=== PATIENT | female | born 1940 | race Caucasian/White ===

== ENCOUNTER → 2017-12-14 | Outpatient (CLI) | payer MEDICARE, OTHER | LOC: MC.RAD 10:00 | DX: N60.81 Other benign mammary dysplasias of right breast (principal); N60.11 Diffuse cystic mastopathy of right breast ==

== ENCOUNTER → 2021-01-08 | Outpatient (CLI) | payer MEDICARE, OTHER ==
[2021-01-08 13:22] LABS: BASO % 0.5 % (0.0-2.0); EOS # 0.5 K/mm3 (0.0-0.7); EOS % 6.9 % (0-4.0); GRAN # 3.1 K/mm3 (1.4-6.5); HEMATOCRIT 37.9 % (37.0-47.0); HEMOGLOBIN 13.1 g/dl (12.5-16.0); LYMPH # 2.1 K/mm3 (1.2-3.4); LYMPH % 31.3 % (20.0-51.0); MEAN CELL VOLUME 90 fl (80.0-100.0); MEAN CORPUSCULAR HEMOGLOBIN 31 pg (27.0-31.0); MEAN CORPUSCULAR HGB CONC 35 g/dl (33.0-37.0); MEAN PLATELET VOLUME 9.6 fl (7.4-10.4); MONO # 0.9 K/mm3 (0.1-0.6); PLATELET COUNT 335 K/mm3 (130-400); RED BLOOD COUNT 4.22 M/mm3 (4.10-5.30); REDCELL DISTRIBUTION WIDTH-CV 12.7 % (11.5-14.5)
[2021-01-08 13:30] LABS: INR 1.1 (0.8-3.0); PROTHROMBIN TIME 12.1 SECONDS (9.7-12.8)
[2021-01-08 13:52] LABS: ALBUMIN 4.1 gm/dL (3.4-4.8); BILIRUBIN,TOTAL 0.4 mg/dL (0.2-1.2); CALCIUM 9.9 mg/dL (8.4-10.2); CREATININE, serum 0.87 mg/dL (0.57-1.11); POTASSIUM 3.9 mmol/L (3.5-4.5); TOTAL PROTEIN 7.8 gm/dL (6.2-8.1)
== END ==
LOC: COL.LAB 12:51
PROVIDERS: Orthopaedic Surgery
DX: Z01.812 Encounter for preprocedural laboratory examination (principal)

== ENCOUNTER → 2021-06-03 | Outpatient (CLI) | payer MEDICARE | LOC: COL.RAD 08:31 | DX: M48.44XA Fatigue fracture of vertebra, thoracic region, initial encounter for fracture (principal); M48.061 Spinal stenosis, lumbar region without neurogenic claudication; M89.9 Disorder of bone, unspecified | CPT/HCPCS: A9503 ==

== ENCOUNTER 2023-08-29 08:24 | Day surgery (SDC) | payer MEDICARE ==
[2023-08-29] VITALS (14 sets, daily range): BP systolic 121–168; BP diastolic 46–103; PULSE 65–79; TEMP 97.5–97.9
[~2023-08-29] VITALS: Ht 165.1 cm; Wt 78.4 kg
[~2023-08-29 08:24] MED LIST: Celecoxib 200 MG CAP PO SCH; HYDROmorphone 1 MG/1 ML SYRINGE [PACU/SDC ONLY] IV PRN; LR 1,000 ML IV SCH; Meperidine 50 MG/ML 1 ML VIAL IV PRN; Ondansetron 4 MG/2 ML VIAL IV PRN; Pregabalin 150 MG CAP PO SCH; droPERidol 2.5 MG/ML 2 ML VIAL IV PRN; fentaNYL 50 MCG/ML 1 ML SYRINGE/VIAL [PACU/SDC ONLY] IV PRN; hydrALAZINE 20 MG/ML 1 ML VIAL IV PRN; oxyCODONE ER (12-HR) 20 MG TAB PO SCH
[2023-08-29] MEDS ORDERED: fentaNYL 50 MCG/ML 2 ML VIAL ONE (09:09)
[2023-08-29] MEDS ORDERED: dexAMETHasone 10 MG/ML VIAL ONE (09:11)
[2023-08-29] MEDS ORDERED: Ondansetron 4 MG/2 ML VIAL ONE (09:11)
[2023-08-29] MEDS ORDERED: NS 10 ML IV ONE (09:11)
[2023-08-29] MEDS ORDERED: ULTRAM 50MG TAB50 MG PO (10:17)
[2023-08-29] MEDS ORDERED: LIPITOR 10MG10 MG PO (10:19)
[2023-08-29] MEDS ORDERED: PROTONIX 40MG T40 MG PO (10:20)
[2023-08-29] MEDS ORDERED: PRINIVIL10 MG PO (10:21)
[2023-08-29] MEDS ORDERED: SYNTHROID0.05 MG/TA PO (10:21)
[2023-08-29] MEDS ORDERED: MOBIC15 MG PO (10:22)
[2023-08-29] MEDS ORDERED: CYMBALTA 30MG30 MG PO (10:23)
[2023-08-29] MEDS ORDERED: HYGROTON 2525 MG/TAB (10:25)
[2023-08-29] MEDS ORDERED: VITAMIN D362.5 MC1 PO (10:26)
[2023-08-29] MEDS ORDERED: B-12 500 MCG PO (10:26)
[2023-08-29] MEDS ORDERED: FERROUS SU325 MG/TAB PO (10:27)
[2023-08-29] MEDS ORDERED: FOLIC ACID 40400 MCG PO (10:27)
[2023-08-29] MEDS ORDERED: Tranexamic Acid 1,000 MG/10 ML VIAL ONE (10:47)
[2023-08-29] MEDS ORDERED: Topical Skin Adhesive 1 EACH (1 ML) TOP ONE (11:12)
[2023-08-29] MEDS ORDERED: Promethazine 25 MG TAB PO PRN (12:15)
[2023-08-29] MEDS ORDERED: Naloxone 0.4 MG/ML VIAL IV PRN (12:15)
[2023-08-29] MEDS ORDERED: oxyCODONE 5 MG TAB PO PRN (12:15)
[2023-08-29] MEDS ORDERED: Morphine 4 MG/ML VIAL IV PRN (12:15)
[2023-08-29] MEDS ORDERED: Promethazine 50 MG/ML 1 ML VIAL IM PRN (12:15)
[2023-08-29] MEDS ORDERED: Magnes Hydrox (MOM) 80 MG/ML 30 ML CUP PO PRN (12:15)
[2023-08-29] MEDS ORDERED: traMADol 50 MG TAB PO PRN (12:30)
[2023-08-29] MEDS ORDERED: Acetaminophen 500 MG TAB PO SCH (13:10)
--- NOTE | 2023-08-29 14:13 | NUR ---
pillar worker met with patient, and family members to discuss discharge planning. Patient lives in [place] with her , Marco Antonio, P# [phone]. PCP is Jorge Dinero, pharmacy is [facility]. No issues affording medications at this time. Insurance is Medicare A and B and [employer] Senior Supplemental. DPOA-HC is Marco Antonio. DME is cane, walker and walk in tub. Patient reports to normally be independent with ADLS and transportation to and from appointments. Patient reports she plans to return home at time of discharge with outpatient PT at [facility] starting on Tuesday. Discharge plan: Home with outpatient PT at [facility]
[2023-08-29] MEDS ORDERED: dexAMETHasone 10 MG/ML VIAL IV SCH (16:00)
--- NOTE | 2023-08-29 19:26 | NUR ---
report received from jorge clayton. pt sitting in recliner watching tv. pt denies pain. call light in reach. all needs met at this time.
[2023-08-29] MEDS ORDERED: Sennosides/Docusate 8.6-50 MG TAB PO SCH (21:00)
[2023-08-29] MEDS ORDERED: ceFAZolin 1 G in Water For Injection,Sterile 10 ML IV SCH (21:00)
--- NOTE | 2023-08-29 22:05 | NUR ---
shift assessment complete, see documentation. pt tolerated hs meds well. pt rating right knee pain 08/07. prn oxycodone administered per orders at 2159. crycocuff to right knee without issue. pt resting in bed watching tv. call light in reach. all needs met at this time.
--- NOTE | 2023-08-30 00:08 | NUR ---
pt c/o insomnia. 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 new order for 25mg PO Benadryl PRN HS for insomnia.
[2023-08-30] MEDS ORDERED: diphenhydrAMINE 25 MG CAP PO PRN (00:15)
[2023-08-30 01:12] VITALS: BP_SYST 168
[2023-08-30 04:00] VITALS: BP 134/79; PULSE 72; TEMP 97.8
[2023-08-30 04:28] VITALS: BP_SYST 134
--- NOTE | 2023-08-30 05:45 | NUR ---
pt ended up sleeping well. pt denies pain this morning. scheduled tylenol administered per orders. pt ambulated to bathroom and back to bed with SBA and steady gait. cryocuff placed to right knee. call light in reach. all needs met at this time.
[2023-08-30 06:46] LABS: HEMOGLOBIN 11.4 g/dl (12.5-16.0)
[2023-08-30 06:49] LABS: HEMATOCRIT 33.4 % (37.0-47.0)
--- NOTE | 2023-08-30 06:57 | NUR ---
Pt sitting up in bed, resting. Pt needed glasses from sink counter. No further needs. Call light in reach.
--- NOTE | 2023-08-30 07:50 | NUR ---
Pt sitting up in bed. A&Ox4. VSS. S1S2. Clear lungs on RA. ABD round, soft, non-tender with audible bowel sounds. Palpable pulses in all extremities. LAURA Hose on L leg. Bulky SHERRY dressing on R knee - CDI. INT in L AC, patent, no issues. Pt reports mild discomfort in R knee. Offerred pain meds, Pt declined. Cryocuff in place. Pt denies n/v, headache, dizziness. Call light in reach.
[2023-08-30 08:00] VITALS: BP 123/70; PULSE 68; TEMP 97.9
--- NOTE | 2023-08-30 08:00 | NUR ---
Pt alert and eating breakfast in bed. Head to toe assessment complete. VSS. Pt complained of mild discomfort in right knee. Offered pain meds, declined at this time. Dyllan wrap on right knee dry and intact. Cryocuff on right knee. Normal heart sounds 1 & 2 and regular rate. Breath sounds clear in all freedman. Radial and dorsalis pedis pulse readily palpable. Abdomen round, soft, and non tender. Call light within reach.
[2023-08-30] MEDS ORDERED: ULTRAM 50MG TAB50 MG PO (08:33)
[2023-08-30] MEDS ORDERED: ASPI325T6 PO (08:34)
[2023-08-30] MEDS ORDERED: CELEBREX 200MG200 MG PO (08:34)
[2023-08-30] MEDS ORDERED: ROXICODONE 55 MG/TAB PO (08:34)
[2023-08-30] MEDS ORDERED: TYLENOL 500MG500 MG PO (08:34)
[2023-08-30] MEDS ORDERED: Atorvastatin 10 MG TAB PO SCH (09:00)
[2023-08-30] MEDS ORDERED: Chlorthalidone 25 MG TAB PO SCH (09:00)
[2023-08-30] MEDS ORDERED: Celecoxib 200 MG CAP PO SCH (09:00)
[2023-08-30] MEDS ORDERED: DULoxetine 30 MG CAP PO SCH (09:00)
[2023-08-30] MEDS ORDERED: Cholecalciferol (Vit D3) 1000 Units TAB PO SCH (09:00)
[2023-08-30] MEDS ORDERED: Cyanocobalamin (Vit B-12) 1,000 MCG TAB PO SCH (09:00)
[2023-08-30] MEDS ORDERED: Lisinopril 10 MG TAB PO SCH (09:00)
--- NOTE | 2023-08-30 10:30 | NUR ---
residential mental health worker notified patient will be ready to discharge home today. SW faxed discharge orders and PT/OT evaluations to [facility] for outpatient PT. Discharge plan: Home with OP PT at [facility]
--- NOTE | 2023-08-30 11:08 | NUR ---
Dyllan dressing removed. Incision edges well approximated and clean. Aquacell applied. Gerson hose on bilat lower extremeties. INT from left AC discontinued. Pressure bandage applied. Patient discharging.
--- NOTE | 2023-08-30 11:39 | NUR ---
Pt and family educated on D/C instruction and information. Answered Pt questions. INT previously D/C'ed. Pt transferred to vehicle via by HOLLAND Hull. No further needs.
== END 2023-08-30 11:40 | disposition home or self-care (01) ==
LOC: SDCO 08:24 → SURG 12:45 → SDCO 16:30
PROVIDERS: Physician Assistant
DX: M17.11 Unilateral primary osteoarthritis, right knee (principal)
CPT/HCPCS: OP; A6197; A9284; C1713; C1776; J0665; J0690; J1100; J2405; J2704; J3010; J7120